=== PATIENT | male | born 1970 | race Caucasian/White ===

== ENCOUNTER 2017-02-21 13:33 | Emergency (ER) | payer OTHER ==
[~2017-02-21] VITALS: Ht 185.4 cm; Wt 122.0 kg
[~2017-02-21 13:33] MED LIST: ECOT81TA2 PO; METO25 PO; NITR0.4S SL; PRAS10 PO; PRAV40 PO
[2017-02-21 13:34] VITALS: BP 148/92; PULSE 56; RESP 24; TEMP 97.7; O2SAT 97
[2017-02-21] MEDS ORDERED: SODIUM CHLOR 0.9% 1000 ML INJ 1,000 ML IV SCH (14:22)
[2017-02-21 14:24] LABS: AUTOMATED NEUTROPHIL # 9.9 TH/MM3 (1.8-7.7); BASOPHIL % 0.4 % (0.0-2.0); EOSINOPHIL # 0.2 TH/MM3 (0-0.4); EOSINOPHIL % 1.6 % (0.0-4.0); HEMO FLAGS DIFF FINAL; LYMPH % 15.1 % (9.0-44.0); LYMPHOCYTE # 1.9 TH/MM3 (1.0-4.8); MEAN CORPUSCULAR HEMOGLOBIN 31.8 PG (27.0-34.0); MEAN CORPUSCULAR HGB CONC 33.5 % (32.0-36.0); MONO % 4.5 % (0.0-8.0); NEUT % 78.4 % (16.0-70.0); PLATELET COUNT 182 TH/MM3 (150-450); RED BLOOD COUNT 4.85 MIL/MM3 (4.50-5.90); RED CELL DISTRIBUTION WIDTH 13.3 % (11.6-17.2); WHITE BLOOD COUNT 12.6 TH/MM3 (4.0-11.0)
--- NOTE | 2017-02-21 14:25 | PD ---
HPI Chief Complaint: Complaint Time Seen by Provider: 14:25 Travel History International Travel<30 days: No Contact w/Intl Traveler<30days: No Traveled to known affect area: No History of Present Illness HPI 46-year-old male presents to the emergency department for evaluation of right lower abdominal pain/groin pain and right testicle pain that started slightly yesterday, but worsened this morning. Patient denies ever having pain similar in the past. No fevers or chills. No chest pain or shortness breath. He reports he vomited 1 this morning. He states his urine is dark in orange in color. Patient reports history of cardiac stent, hypertension, hyperlipidemia, diabetes. Patient denies any history of nephrolithiasis. He denies any previous abdominal surgeries. He denies any alcohol or illicit drugs. PFSH Past Medical History Hx Anticoagulant Therapy: Yes (ASA) Cardiovascular Problems: Yes (HTN, mi, STENTS) Diabetes: Yes (METFORMIN) Diminished Hearing: No Past Surgical History Other Surgery: Yes (VASECTOMY) Social History Alcohol Use: Yes (OCCASIONALLY) Tobacco Use: Yes (1 PPD) Substance Use: No Allergies-Medications (Allergen,Severity, Reaction): Coded Allergies: No Known Allergies (Unverified , 02/21/17) Reported Meds & Prescriptions Reported Meds & Active Scripts Active Ondansetron Odt 4 Mg Tab 4 Mg SL Q6HR PRN Ciprofloxacin (Ciprofloxacin HCl) 500 Mg Tab 500 Mg PO BID 10 Days Reported Pravastatin 80 Mg Tab 80 Mg PO HS Norvasc (Amlodipine Besylate) 2.5 Mg Tab 2.5 Mg PO DAILY Metformin ER (Metformin HCl) 500 Mg Gray 500 Mg PO BID With evening meal Metoprolol Tartrate 25 Mg Tab 25 Mg PO BID Aspirin Low Dose (Aspirin) 81 Mg Chew 81 Mg PO DAILY Review of Systems Except as stated in HPI: all other systems reviewed are Neg Physical Exam Narrative GENERAL: Well-nourished, well-developed male patient, afebrile. SKIN: Focused skin assessment warm/dry. HEAD: Normocephalic. Atraumatic EYES: No scleral icterus. No injection or drainage. NECK: Supple, trachea midline. No JVD or lymphadenopathy. CARDIOVASCULAR: Regular rate and rhythm without murmurs, gallops, or rubs. RESPIRATORY: Breath sounds equal bilaterally. No accessory muscle use. Lungs sounds are clear to auscultation. GASTROINTESTINAL: Abdomen soft and nondistended. Patient has tenderness over right lower quadrant, right groin. MUSCULOSKELETAL: No cyanosis, or edema. BACK: No CVA tenderness. No rash. No point tenderness on palpation of the spine. GENITOURINARY: Circumcised. Patient has right testicular pain to palpation. No lesions or erythema. No urethral discharge. This exam was done with RN at bedside. Data Data Last Documented VS Vital Signs Date Time Temp Pulse Resp B/P Pulse Ox O2 Delivery O2 Flow Rate FiO2 02/21/17 14:52 16 02/21/17 14:35 98 02/21/17 13:34 97.7 56 148/92 Room Air Orders Urinalysis - C+S If Indicated (02/21/17 13:56) Complete Blood Count With Diff (02/21/17 13:56) Comprehensive Metabolic Panel (02/21/17 13:56) Lipase (02/21/17 13:56) Ct Abd/Pel W/O Iv Contrast (02/21/17 14:22) Iv Access Insert/Monitor (02/21/17 14:22) Ecg Monitoring (02/21/17 14:22) Oximetry (02/21/17 14:22) Ondansetron Inj (Zofran Inj) (02/21/17 14:30) Sodium Chlor 0.9% 1000 Ml Inj (Ns 1000 M (02/21/17 14:22) Sodium Chloride 0.9% Flush (Ns Flush) (02/21/17 14:30) Us Testicles W Doppler (02/21/17 ) Morphine Inj (Morphine Inj) (02/21/17 14:45) Urine Culture (02/21/17 14:05) Ceftriaxone Inj (Rocephin Inj) (02/21/17 17:15) Labs Laboratory Tests Test 02/21/17 14:05 White Blood Count 12.6 TH/MM3 Red Blood Count 4.85 MIL/MM3 Hemoglobin 15.4 GM/DL Hematocrit 46.0 % Mean Corpuscular Volume 95.0 FL Mean Corpuscular Hemoglobin 31.8 PG Mean Corpuscular Hemoglobin 33.5 % Concent Red Cell Distribution Width 13.3 % Platelet Count 182 TH/MM3 Mean Platelet Volume 8.4 FL Neutrophils (%) (Auto) 78.4 % Lymphocytes (%) (Auto) 15.1 % Monocytes (%) (Auto) 4.5 % Eosinophils (%) (Auto) 1.6 % Basophils (%) (Auto) 0.4 % Neutrophils # (Auto) 9.9 TH/MM3 Lymphocytes # (Auto) 1.9 TH/MM3 Monocytes # (Auto) 0.6 TH/MM3 Eosinophils # (Auto) 0.2 TH/MM3 Basophils # (Auto) 0.0 TH/MM3 CBC Comment DIFF FINAL Differential Comment Urine Color DARK-ORANGE Urine Turbidity HAZY Urine pH 5.0 Urine Specific [place] 1.024 Urine Protein 30 mg/dL Urine Glucose (UA) NEG mg/dL Urine Ketones NEG mg/dL Urine Occult Blood MOD Urine Nitrite POS Urine Bilirubin NEG Urine Urobilinogen 8.0 MG/DL Urine Leukocyte Esterase NEG Urine RBC 23 /hpf Urine WBC 9 /hpf Urine Bacteria FEW /hpf Urine Mucus MANY /lpf Microscopic Urinalysis Comment CULTURE INDICATED Sodium Level 138 MEQ/L Potassium Level 4.0 MEQ/L Chloride Level 107 MEQ/L Carbon Dioxide Level 25.7 MEQ/L Anion Gap 5 MEQ/L Blood Urea Nitrogen 15 MG/DL Creatinine 1.27 MG/DL Estimat Glomerular Filtration 61 ML/MIN Rate Random Glucose 117 MG/DL Calcium Level 8.5 MG/DL Total Bilirubin 0.5 MG/DL Aspartate Amino Transf 44 U/L (AST/SGOT) Alanine Aminotransferase 62 U/L (ALT/SGPT) Alkaline Phosphatase 50 U/L Total Protein 6.9 GM/DL Albumin 3.7 GM/DL Lipase 140 U/L [facility] Medical Decision Making Medical Screen Exam Complete: Yes Emergency Medical Condition: Yes Medical Record Reviewed: Yes Interpretation(s) US testicles - CONCLUSION: Tiny epididymal head cyst on the right and slight bilateral hydroceles present CT abdomen/pelvis - CONCLUSION: 1. Approximate 3 mm right UVJ stone without any significant hydronephrosis. 2. Slight splenomegaly and fatty liver. 3. Nonspecific left hilar lymph node. Differential Diagnosis Nephrolithiasis versus appendicitis versus epididymitis versus testicular torsion versus UTI Narrative Course 46-year-old male presents to the emergency department for evaluation of right groin, right lower quadrant pain, right testicular pain that started slightly yesterday, but worsened this morning. IV access established. CBC, CMP, lipase , UA are ordered and pending. CT abdomen/pelvis without contrast is ordered and pending. Ultrasound of testicles are ordered and pending. Patient is given normal saline 1 L IV bolus, Zofran 4 mg IV, morphine 4 mg IV. CBC shows leukocytosis of 12.6. CMP shows no acute abnormality, AST is elevated at 44. Lipase is 140. UA shows moderate occult blood, positive nitrate, 23 RBC, 9 WBC, few bacteria. CT abdomen/pelvis shows approximate 3 mm right UVJ stone without any significant hydronephrosis; slight splenomegaly and fatty liver; nonspecific left hilar lymph node.. US testicles shows tiny epididymal head cyst on the right and slight bilateral hydroceles present. Patient is given Rocephin 1 g IV. He'll be discharged with a prescription for Lortab for pain, Zofran for nausea, ciprofloxacin. He is encouraged to follow- up with a urologist and her primary care physician. He'll be given a urine strainer. Patient is to return for any acute worsening of symptoms. I discussed the case with my attending physician, Dr. Jackson, who agrees with plan and disposition. Diagnosis Primary Impression: Nephrolithiasis Additional Impression: Urinary tract infection Qualified Code: N30.01 - Acute cystitis with hematuria Referrals: Kendrick Costa MD call for appointment Primary Care Physician Patient Instructions: General Instructions, Kidney Stones (ED), Narcotic given in the ED, Urinary Tract Infection in Men (ED) Additional Instructions: Take Lortab as directed as needed for pain. Caution this can make you drowsy so do not drive after taking. Take Zofran as directed as needed for nausea/vomiting. Take antibiotic as directed until gone. Use urine strainer. Follow-up with urologist. Dr. Costa is the urologist on-call today. Follow-up with your primary care physician. Return to the emergency department for any acute worsening of symptoms. Med/Other Pt SpecificInfo: Prescription(s) given Scripts Hydrocodone-Acetaminophen (Lortab)5-325 Mg Tab1 Tab PO Q6H PRN (PAIN) #16 TAB Ref 0 Prov:Selena Jackson DO 02/21/17 Ondansetron Odt 4 Mg Tab4 Mg SL Q6HR PRN (Nausea/Vomiting) #16 TAB Ref 0 Prov:Kait Roy 02/21/17 Ciprofloxacin 500 Mg [id number] Mg PO BID 10 Days Ref 0 Prov:Kait Roy 02/21/17 Disposition: 01 DISCHARGE HOME Condition: Stable Kait Roy Feb 21, 2017 14:25
[2017-02-21] MEDS ORDERED: METF500T4 PO (14:27)
[2017-02-21] MEDS ORDERED: METO25TA3 PO (14:27)
[2017-02-21] MEDS ORDERED: PRAV80TA2 PO (14:27)
[2017-02-21] MEDS ORDERED: ASPI81CH37 PO (14:27)
[2017-02-21] MEDS ORDERED: NORV2.5T PO (14:27)
[2017-02-21] MEDS ORDERED: SODIUM CHLORIDE 0.9% FLUSH 10 ML FLUSH IV FLUSH PRN (14:30)
[2017-02-21] MEDS ORDERED: ONDANSETRON HCL 4 MG/2 ML VIAL IVP ONE (14:30)
[2017-02-21 14:35] VITALS: RESP 18; O2SAT 98
[2017-02-21 14:40] LABS: BACTERIA, URINE FEW /hpf; BLOOD, URINE MOD (NEG); COMMENT (UR) CULTURE INDICATED; CULTURE IF INDICATED CULTURE INDICATED; GLUCOSE,URINE NEG (NEG); KETONE, URINE NEG (NEG); MUCUS URINE MANY /lpf (OCC)
[2017-02-21 14:41] LABS: NITRITE,URINE POS (NEG)
[2017-02-21 14:42] LABS: URINE COLOR DARK-ORANGE (YELLW/STRAW)
[2017-02-21 14:45] LABS: ANION GAP 5 MEQ/L (5-15); AST (GOT) 44 U/L (15-37); BICARBONATE 25.7 MEQ/L (21.0-32.0); BLOOD UREA NITROGEN 15 MG/DL (7-18); CHLORIDE 107 MEQ/L (98-107); GLOMERULAR FILTRATION RATE 61 ML/MIN (>89); SODIUM (NA) 138 MEQ/L (136-145)
[2017-02-21] MEDS ORDERED: MORPHINE SULFATE 8 MG/ML INJ IV PUSH ONE (14:45)
[2017-02-21 14:46] LABS: ALT (GPT) 62 U/L (12-78)
[2017-02-21 14:48] LABS: ALKALINE PHOSPHATASE 50 U/L (45-117); TOTAL BILIRUBIN ADULT 0.5 MG/DL (0.2-1.0)
[2017-02-21 14:52] VITALS: RESP 16
--- NOTE | 2017-02-21 15:54 | RADRPT ---
EXAM DATE/TIME: 02/21/2017 14:42 [facility] COMPARISON: No previous studies available for comparison. INDICATIONS : Scrotal pain. MEDICAL HISTORY : Myocardial infarction. Hypertension. Anticoagulant therapy, Aspirin. Diabetes. SURGICAL HISTORY : Coronary artery stent. Vasectomy. ENCOUNTER: Initial ACUITY: 1 day PAIN SCORE: 5/10 LOCATION: Bilateral scrotum. MEASUREMENTS: RIGHT TESTICLE: 4.9 x 3.6 x 3.0cm LEFT TESTICLE: 5.1 x 3.7 x 2.9cm FINDINGS: RIGHT TESTICLE: Homogeneous echotexture without intra or extratesticular mass. Blood flow is symmetric and within no rmal limits. There is a tiny hydrocele without varicocele. An approximate 7 mm epididymal head cyst i s seen. LEFT TESTICLE: Homogeneous echotexture without intra or extratesticular mass. Blood flow is symmetric and within no rmal limits. There is a tiny hydrocele without varicocele. Epididymis is within normal limits. SCROTUM: Within normal limits. CONCLUSION: Tiny epididymal head cyst on the right and slight bilateral hydroceles present KJalen Watson MD on February 21, 2017 at 15:52 Board Certified Radiologist. This report was verified electronically.
--- NOTE | 2017-02-21 16:41 | RADRPT ---
EXAM DATE/TIME: 02/21/2017 16:06 [facility] COMPARISON: No previous studies available for comparison. INDICATIONS : Right lower quadrant pain. ORAL CONTRAST: No oral contrast ingested. RADIATION DOSE: 16.27 CTDIvol (mGy) MEDICAL HISTORY : Cardiovascular disease. SURGICAL HISTORY : None. ENCOUNTER: Initial ACUITY: 1 day PAIN SCALE: 7/10 LOCATION: Right lower quadrant TECHNIQUE: Volumetric scanning of the abdomen and pelvis was performed. Using automated exposure control and adjustment of the mA and/or kV according to patient size, radiation dose was kept as low as reasonably achievable to obtain optimal diagnostic quality images. DICOM format image data is av ailable electronically for review and comparison. FINDINGS: CT Abdomen: The pancreas, kidneys, adrenals are unremarkable. There is no evidence for any appreciabl e pathological adenopathy, free fluid, or bowel obstruction. The liver is fatty without focal lesion s for technique. The spleen is enlarged measuring 13.7 cm in craniocaudal dimension without focal les ions for technique. There is an approximate 2 cm left hilar lymph node. CT pelvis: There is no evidence for mass, abscess formation, or any significant adenopathy within the pelvis. There is an approximate 3 mm right UVJ stone without any significant hydronephrosis. CONCLUSION: 1. Approximate 3 mm right UVJ stone without any significant hydronephrosis. 2. Slight splenomegaly and fatty liver. 3. Nonspecific left hilar lymph node. Toñito Watson MD on February 21, 2017 at 16:36 Board Certified Radiologist. This report was verified electronically.
[2017-02-21] MEDS ORDERED: cefTRIAXone INJ 1,000 MG in SODIUM CHLORIDE 0.9% INJ 100 ML IV ONE (17:15)
[2017-02-21] MEDS ORDERED: ONDA4TAB7 SL (17:18)
[2017-02-21] MEDS ORDERED: CIPR500T2 PO (17:18)
[2017-02-21] MEDS ORDERED: HYDR-3533 PO (17:20)
== END 2017-02-21 15:00 | disposition home or self-care (01) ==
LOC: NEPC 13:33
DX: N20.0 Calculus of kidney (principal); N30.01 Acute cystitis with hematuria; N50.3 Cyst of epididymis; N43.3 Hydrocele, unspecified; N20.1 Calculus of ureter; D72.829 Elevated white blood cell count, unspecified; R11.10 Vomiting, unspecified; I10 Essential (primary) hypertension; E11.9 Type 2 diabetes mellitus without complications; E78.5 Hyperlipidemia, unspecified; F17.200 Nicotine dependence, unspecified, uncomplicated; Z79.82 Long term (current) use of aspirin; Z79.84 Long term (current) use of oral hypoglycemic drugs; Z86.79 Personal history of other diseases of the circulatory system
CPT/HCPCS: 74176; 76870; 80053; 81001; 83690; 85025; 87086; 93975; 96361; 96374; 96375; 99285; J0696; J2270; J2405; J7030